=== PATIENT | female | born 1995 | race Caucasian/White ===

== ENCOUNTER 2023-10-05 05:32 | Emergency (ER) | payer MEDICAID ==
[~2023-10-05] VITALS: Ht 170.2 cm; Wt 78.0 kg
[2023-10-05 06:13] VITALS: O2SAT 100
[2023-10-05] MEDS: LIDOCAINE HCL/PF 1% 10 MG/ML 5ML VIAL INFIL ONE (07:30)
[2023-10-05] MEDS: TETANUS, DIPHTHERIA, PERTUSSIS VAC/PF 0.5ML (>10YR OLD) IM ONE (07:40)
[2023-10-05] MEDS ORDERED: TOPUD PO (07:53)
[2023-10-05 09:01] VITALS: BP 122/61; PULSE 68; RESP 18; TEMP 97.9
== END 2023-10-05 09:54 | disposition home or self-care (01) ==
LOC: ER 05:32
DX: S51.012D Laceration without foreign body of left elbow, subsequent encounter (principal); W01.0XXA Fall on same level from slipping, tripping and stumbling without subsequent striking against object, initial encounter; Y93.89 Activity, other specified; Y92.89 Other specified places as the place of occurrence of the external cause; Y99.8 Other external cause status
CPT/HCPCS: 73080; 90715; 12002; 90471; 99283; J3490; Z7610 ×2

== ENCOUNTER 2024-03-22 17:13 | Emergency (ER) | payer MEDICAID ==
[~2024-03-22] VITALS: Ht 165.1 cm; Wt 66.6 kg
[~2024-03-22 17:13] MED LIST: TOPUD PO
[2024-03-22 17:17] VITALS: O2SAT 99
[2024-03-22 20:48] VITALS: BP 129/77; PULSE 71; RESP 17; TEMP 36.78072; O2SAT 99
== END 2024-03-22 20:50 | disposition home or self-care (01) ==
LOC: ER 17:13
DX: D17.9 Benign lipomatous neoplasm, unspecified (principal)
CPT/HCPCS: 99281

== ENCOUNTER 2024-08-17 20:00 | Emergency (ER) | payer MEDICAID, OTHER ==
[~2024-08-17] VITALS: Ht 162.6 cm; Wt 71.8 kg
[2024-08-17 20:01] VITALS: BP 109/58; PULSE 90; RESP 16; TEMP 36.8; O2SAT 100
[2024-08-17 21:41] LABS: CLARITY URINE CLEAR (CLEAR); COLOR URINE YELLOW (YELLOW); GLUCOSE URINE NEGATIVE (NEGATIVE); KETONES URINE NEGATIVE (NEGATIVE); LEUKOCYTE ESTERASE URINE TRACE (NEGATIVE); NITRITE URINE NEGATIVE (NEGATIVE); OCCULT BLOOD URINE NEGATIVE (NEGATIVE); PH URINE 5.5 (4.5-8.0); PROTEIN URINE NEGATIVE (NEGATIVE); SPECIFIC GRAVITY URINE 1.019 (1.005-1.030); UROBILINOGEN URINE 0.2 E.U./dL (0.2-1.0)
[2024-08-17 21:59] LABS: UCG KIT EXPIRATION DATE 06/12/22026; UCG KIT LOT# 888041; UCG SCREEN POSITIVE
[2024-08-17 22:34] LABS: BACTERIA URINE 1+; RBC URINE 0-2 /hpf (0-2); SQUAMOUS EPITHELIAL CELL URINE 1+ /lpf (RARE/1+); WBC URINE 0-2 /hpf (0-2)
[2024-08-18 02:54] LABS: BASOPHILS % 0.6 % (0.0-2.0); EOSINOPHILS % 1.7 % (0.0-5.0); HEMATOCRIT. 35.6 % (36.0-48.0); HEMOGLOBIN. 12.5 g/dL (12.0-16.0); LYMPHOCYTES % 29.5 % (20.0-50.0); MEAN CORPUSCULAR HEMOGLOBIN 31.2 pg (28.0-32.0); MEAN CORPUSCULAR HGB CONC 35.2 g/dL (31.0-37.0); MEAN CORPUSCULAR VOLUME 88.6 fL (81.0-99.0); MEAN PLATELET VOLUME 9.4 fl (7.4-10.4); NEUTROPHILS % 63.2 % (40.0-76.0); PLATELET 234 x1000/uL (130-400); RED BLOOD CELL COUNT 4.02 mill/uL (4.2-5.4); RED CELL DISTRIBUTION WIDTH 13.7 % (11.6-14.6); WHITE BLOOD COUNT 7.1 x1000/uL (4.5-11.0)
[2024-08-18 03:02] LABS: CHLORIDE 107 mEq/L (98-107); POTASSIUM 4.6 mEq/L (3.5-5.1); SODIUM 139 mEq/L (136-145)
[2024-08-18 03:03] LABS: CALCIUM 9.2 mg/dL (8.7-10.4); CARBON DIOXIDE 27 mEq/L (21-32)
[2024-08-18 03:08] LABS: CREATININE 0.8 mg/dL (0.6-1.0); GLUCOSE 93 mg/dL (70-105); UREA NITROGEN BLOOD 16 mg/dL (9-23)
[2024-08-18 03:10] LABS: ALANINE AMINOTRANSFERASE 13 IU/L (10-49); ALBUMIN 3.9 g/dL (3.2-4.8); ASPARTATE AMINOTRANSFERASE 15 IU/L (<34); BILIRUBIN DIRECT 0.2 mg/dL (<=3.0); BILIRUBIN TOTAL 0.8 mg/dL (0.1-1.0); PROTEIN TOTAL 6.5 g/dL (6.0-8.3)
[2024-08-18 03:42] LABS: B-HCG QUANTITATIVE 3546 mIU/mL (<3)
== END 2024-08-18 04:21 | disposition home or self-care (01) ==
LOC: ER 20:00
DX: O34.81 Maternal care for other abnormalities of pelvic organs, first trimester (principal); N83.202 Unspecified ovarian cyst, left side; Z3A.01 Less than 8 weeks gestation of pregnancy
CPT/HCPCS: 36415; 76801; 80048; 80076; 81003; 81025; 84702; 85025; 86850; 86900; 99284

== ENCOUNTER 2024-08-29 11:03 | Emergency (ER) | payer OTHER ==
[~2024-08-29] VITALS: Ht 165.1 cm; Wt 71.0 kg
[2024-08-29 11:29] VITALS: O2SAT 99
[2024-08-29 12:36] LABS: BASOPHILS % 0.4 % (0.0-2.0); EOSINOPHILS % 0.7 % (0.0-5.0); HEMATOCRIT. 37.7 % (36.0-48.0); HEMOGLOBIN. 13.1 g/dL (12.0-16.0); LYMPHOCYTES % 16.8 % (20.0-50.0); MEAN CORPUSCULAR HEMOGLOBIN 31.5 pg (28.0-32.0); MEAN CORPUSCULAR HGB CONC 34.8 g/dL (31.0-37.0); MEAN CORPUSCULAR VOLUME 90.4 fL (81.0-99.0); MEAN PLATELET VOLUME 9.5 fl (7.4-10.4); MONOCYTES % 7.2 % (2.0-8.0); NEUTROPHILS % 74.9 % (40.0-76.0); PLATELET 199 x1000/uL (130-400); RED BLOOD CELL COUNT 4.17 mill/uL (4.2-5.4); RED CELL DISTRIBUTION WIDTH 13.8 % (11.6-14.6); WHITE BLOOD COUNT 6.4 x1000/uL (4.5-11.0)
[2024-08-29 12:45] LABS: CARBON DIOXIDE 26 mEq/L (21-32); CHLORIDE 104 mEq/L (98-107); SODIUM 137 mEq/L (136-145)
[2024-08-29 12:46] LABS: CALCIUM 8.7 mg/dL (8.7-10.4)
[2024-08-29 12:51] LABS: CREATININE 0.6 mg/dL (0.6-1.0); GLUCOSE 91 mg/dL (70-105); UREA NITROGEN BLOOD 8 mg/dL (9-23)
[2024-08-29 13:18] LABS: B-HCG QUANTITATIVE 29036 mIU/mL (<3)
[2024-08-29 13:42] VITALS: BP 104/64; PULSE 58; RESP 16; TEMP 36.7; O2SAT 99
== END 2024-08-29 13:46 | disposition home or self-care (01) ==
LOC: ER 11:03
DX: O20.0 Threatened abortion (principal); Z3A.01 Less than 8 weeks gestation of pregnancy
CPT/HCPCS: 36415; 76801; 80048; 81025; 84702; 85025; 86850; 86900; 99284

== ENCOUNTER 2024-09-01 14:17 | Emergency (ER) | payer OTHER ==
[~2024-09-01] VITALS: Ht 160 cm; Wt 71.0 kg
[2024-09-01 14:29] VITALS: BP 102/53; PULSE 67; RESP 16; TEMP 36.7; O2SAT 100
[2024-09-01 15:14] LABS: BASOPHILS % 0.4 % (0.0-2.0); EOSINOPHILS % 1.4 % (0.0-5.0); HEMATOCRIT. 35.9 % (36.0-48.0); LYMPHOCYTES % 35.2 % (20.0-50.0); MEAN CORPUSCULAR HEMOGLOBIN 30.2 pg (28.0-32.0); MEAN CORPUSCULAR HGB CONC 33.5 g/dL (31.0-37.0); MEAN CORPUSCULAR VOLUME 90.3 fL (81.0-99.0); MEAN PLATELET VOLUME 9.3 fl (7.4-10.4); MONOCYTES % 4.1 % (2.0-8.0); NEUTROPHILS % 58.9 % (40.0-76.0); PLATELET 242 x1000/uL (130-400); RED BLOOD CELL COUNT 3.98 mill/uL (4.2-5.4); RED CELL DISTRIBUTION WIDTH 13.7 % (11.6-14.6); WHITE BLOOD COUNT 7.1 x1000/uL (4.5-11.0)
[2024-09-01 15:20] LABS: CHLORIDE 104 mEq/L (98-107); POTASSIUM 3.7 mEq/L (3.5-5.1); SODIUM 136 mEq/L (136-145)
[2024-09-01 15:21] LABS: CARBON DIOXIDE 25 mEq/L (21-32)
[2024-09-01 15:22] LABS: CALCIUM 8.5 mg/dL (8.7-10.4)
[2024-09-01 15:26] LABS: CREATININE 0.5 mg/dL (0.6-1.0); GLUCOSE 83 mg/dL (70-105); UREA NITROGEN BLOOD 12 mg/dL (9-23)
[2024-09-01 15:43] LABS: B-HCG QUANTITATIVE 40172 mIU/mL (<3)
== END 2024-09-01 17:54 | disposition home or self-care (01) ==
LOC: ER 14:17
DX: O20.0 Threatened abortion (principal); Z3A.01 Less than 8 weeks gestation of pregnancy
CPT/HCPCS: 36415; 76801; 80048; 84702; 85025; 99284